=== PATIENT | female | born 1935 | race Caucasian/White ===

== ENCOUNTER 2018-06-11 03:00 | Inpatient (IN) | payer OTHER, BC, MEDICAID ==
[~2018-06-11] VITALS: Ht 165.1 cm; Wt 68.1 kg
[2018-06-11 03:10] VITALS: Ht 165.1 cm; Wt 68.1 kg
[2018-06-11 04:01] LABS: BASOPHIL % 0.1 % (0-2); PLATELET COUNT 188 x10^3mcL (130-400)
[2018-06-11 04:08] LABS: RED CELL DISTRIBUTION WIDTH 15.5 % (11.5-14.5)
[2018-06-11 04:09] LABS: CALCIUM 8.5 mg/dL (8.5-10.1); CARBON DIOXIDE 32.7 mmol/L (21-32); CHLORIDE SERUM 101 mmol/L (98-107); GLUCOSE SERUM 72 mg/dL (74-106); POTASSIUM SERUM 4.3 mmol/L (3.5-5.1); SODIUM SERUM 139 mmol/L (136-145)
[2018-06-11 04:28] LABS: ALBUMIN 3.3 g/dL (3.4-5.0); ALKALINE PHOSPHATASE 79 U/L (46-116); ALT/SGPT 47 U/L (14-59); AST/SGOT 23 U/L (15-37); BILIRUBIN TOTAL 0.6 mg/dL (0.20-1.00); FREE T4 0.56 ng/dL (0.76-1.46); LIPASE 94 IU/L (73-393); TOTAL PROTEIN, SERUM 7.1 g/dL (6.4-8.2)
[2018-06-11 06:33] LABS: microscopic required? NO
[2018-06-11 06:44] VITALS: BP 153/66
[2018-06-11 06:54] LABS: urine erythrocyte NEGATIVE (NEGATIVE)
[2018-06-11 08:21] LABS: CHOLESTEROL/HDL RATIO 1.9; MAGNESIUM 2.1 mg/dL (1.8-2.4); PHOSPHOROUS 3.3 mg/dL (2.5-4.9)
[2018-06-11 09:52] VITALS: BP 153/66
[2018-06-11 10:00] VITALS: BP 118/61
[2018-06-11 12:31] VITALS: BP 120/64
[2018-06-11] MEDS ORDERED: LEVOTHYROXIN0.175 MG PO (14:22)
[2018-06-11] MEDS ORDERED: NITROGLYCERIN0.4 MG (14:23)
[2018-06-11] MEDS ORDERED: NATURAL ZINC50 MG PO (14:25)
[2018-06-11] MEDS ORDERED: PROGESTERONE100 M1 PO (14:26)
[2018-06-11] MEDS ORDERED: B-COMPLEX TABL0.4 MG PO (14:27)
[2018-06-11] MEDS ORDERED: NALOXONE PO (14:28)
[2018-06-11] MEDS ORDERED: PENTAZOCINE PO (14:28)
[2018-06-11] MEDS ORDERED: LYRICA75 M1 PO (14:30)
[2018-06-11] MEDS ORDERED: BUPROPION HCL150 M3 PO (14:30)
[2018-06-11] MEDS ORDERED: D3-50001 TAB PO (14:31)
[2018-06-11] MEDS ORDERED: DEXAMETHASONE4 MG PO (14:31)
[2018-06-11 16:30] VITALS: BP 129/66
[2018-06-11 22:24] VITALS: BP 147/71
[2018-06-12 05:29] VITALS: BP 132/73
[2018-06-12 08:59] VITALS: BP 134/76
[2018-06-12 12:29] VITALS: BP 130/72
[2018-06-12 13:01] VITALS: BP 130/72
[2018-06-12 16:10] VITALS: BP 110/65
== END 2018-06-12 16:21 | DRG 640 ==
LOC: ED 03:00 → DU 05:21
PROVIDERS: Emergency Medicine; Family Medicine
DX: E86.0 Dehydration (principal); N17.0 Acute kidney failure with tubular necrosis; M79.7 Fibromyalgia; F32.9 Major depressive disorder, single episode, unspecified; I10 Essential (primary) hypertension; M48.00 Spinal stenosis, site unspecified; E03.9 Hypothyroidism, unspecified; E78.5 Hyperlipidemia, unspecified; Z68.24 Body mass index [BMI] 24.0-24.9, adult; Z98.1 Arthrodesis status; Z66 Do not resuscitate
CPT/HCPCS: 83880; 84439; 97110-GP; J1885; J7030; J7040; J8540; Q0092